=== PATIENT | female | born 1970 | race Caucasian/White ===

== ENCOUNTER 2024-04-02 06:39 | Outpatient (CLI) | payer OTHER, SELFPAY ==
[2024-04-02 08:26] LABS: Alanine Aminotransferase 50 U/L (6-35); Albumin Level 4.5 g/dL (3.5-5.1); Alkaline Phosphatase 68 U/L (38-126); Anion Gap 9 mmol/L (4-12); Aspartate Amino Transferase 31 U/L (14-36); Bilirubin,Total 0.6 mg/dL (0.2-1.3); Blood Urea Nitrogen 16 mg/dL (7-17); Calcium 9.1 mg/dL (8.4-10.2); Carbon Dioxide 27 mmol/L (22-30); Chloride 104 mmol/L (98-107); Cholesterol 142 mg/dL (0-200); Estimated Glomerular Filt Rate > 60; Glucose 99 mg/dL (65-110); HDL Direct 62 mg/dL; Sodium 140 mmol/L (137-145); Triglycerides 154 mg/dL (<150)
[2024-04-02 08:37] LABS: LDL Cholesterol Direct 62 mg/dL
[2024-04-02 08:41] LABS: Hemoglobin A1C 5.6 % (<5.7)
[2024-04-02 08:51] LABS: Free T4 Free Thyroxine 1.69 ng/mL (0.78-2.19)
[2024-04-02 08:55] LABS: Thyroid Stimulating Hormone 0.388 uIU/mL (0.465-4.680)
[2024-04-02 08:59] LABS: Creatinine Urine 92.7 mg/dL
[2024-04-02 09:09] LABS: MALB Creatinine Ratio < 6.5 mg/g (0-30); Microalbumin Urine Random < 6.0 mg/L (0-16.7)
== END 2024-04-02 06:40 | disposition home or self-care (01) ==
PROVIDERS: PCP Family Medicine
DX: E11.9 Type 2 diabetes mellitus without complications (principal); E03.9 Hypothyroidism, unspecified; E78.2 Mixed hyperlipidemia
CPT/HCPCS: 36415; 80053; 80061; 82043; 83036; 84439; 84443

== ENCOUNTER 2025-07-16 14:10 | Outpatient (CLI) | payer OTHER, SELFPAY ==
--- OUTSIDE RECORDS SUMMARY | 2022-04-25 09:39 | XMS_ITS | Continuity of Care Document ---
Author Organization [facility] Address [address] [place] [address] Phone Care Team Providers Care Plastic Duplicator Name Role Phone Aslam, Romila Unavailable Unavailable Allergies, Adverse Reactions, Alerts Substance Reaction Status Criticality NSAIDS (Non-Steroidal Anti-Inflammatory Drug) Active No Information lidocaine Unknown Active No Information Medications Medication Instructions Dosage Effective Dates (start - stop) Status Comments ergocalciferol (vitamin D2) 1,250 mcg (50,000 unit) capsule 1 tab po q week for 3 months - Active prednisone 20 mg tablet take 1 tablet by oral route every day FOR 5 DAYS - Active metformin 500 mg tablet take 1 tablet by oral route 2 times every day with morning and evening meals 500 MG - Active prednisone 10 mg tablet take 1 tablet by oral route every day 10 MG - No Longer Active Procedures Procedure Date OFFICE/OUTPATIENT VISIT, EST OFFICE/OUTPATIENT VISIT, EST Advance Directives Directive Yes / No Effective Date File Name No Information Encounters Encounter Description Practice Location Reason(s) For Visit Diagnoses Date Provider Providers Copied on Encounter OFFICE/OUTPAT IENT VISIT, EST [facility], [address] [place], [address], tel:[phone] *[facility] 2 week f/u (chief complaint)P olyarthopat hy (chief complaint) Polyarthralgia 2 Aslam Romila. [address] [place], [address], . tel:[phone] OFFICE/OUTPAT IENT VISIT, EST [facility], [address] [place], [address], tel:[phone] *[facility] NEW PATIENT (chief complaint)P olyarthopat hy (chief complaint) Polyarthralgia 2 Aslam Romila. [address] [facility], [place], [address], [place]. tel:[phone] Family History Family Member Type Diagnosis Age At Onset No Information Payers Payer name Insurance type Covered constitution party ID Authoriza tion(s) No Information Social History Type Description Quantity Date Captured Comments Alcohol Use Details Unknown Caffeine Use Details Unknown Tobacco Use Status No Information Smoking Status No Information Sex Female Vital Signs Date / Time: Height Weight BMI Pulse Rate Blood Pressure Temperature Respiratory Rate Body Surface Area Head Circumference Head Circ. Percentile Wt./Casa. Percentile BMI percentile Pulse Ox Inhaled Ox 2:41 PM 68.00 in 104.326 kg (230.00 lbs) 34.9 7 kg/m eter (2) 81 /min 128/83 mm[Hg] 97.00 F 94 % Chief Complaint And Reason For Visit From encounter dated '04/25/2022 14:39'. 2 week f/u (chief complaint) Polyarthopathy (chief complaint). Description: 51 y old with h/o overall pain and stiffness for a couple of years . worse since she had COVID earlier this year feels fatiguedhistory and exam was consistent with fibromyalgia last time we did her labs and she is here for follow up on that continues with overall pain and fatigue Reason For Referral Reason For Referral No Information History Of Present Illness Encounter Date Complaint History Of Prese nt Illness Polyarthopathy 51 y old with h/ o overall pain and stiffness for a couple of years . worse since she had COVID earlier this year feels fatiguedhistory and exam was consistent with fibromyalgia last time we did her labs and she is here for follow up on that continues with overall pain and fatigue 2 week f/u NEW PATIENT Polyarthopathy 51 y old with h/ o overall pain and stiffness for a couple of years . worse since she had COVID earlier this year feels fatiguespoor sleepbloating no swelling no rashessometimes swelling of the face around the jaw area? family h/o autoimmune diseaseno h/o strokes,cancers or blood clotsANA of 1:80 on labs a few months ago Functional Status Date Functional Assessmen t No Information Instructions Date Instruction Additional Infor sweetie No Information Assessments Type Assessment Date assessment Polyarthralgia impression patient repeat BEVERLY w as negative autoimune work up is negative as wellTSH was significantly elevated at 109 . i talked to the patient on the phone as well yesterday . she has contacted her PCP and aiting to hear from them at this point she can continue to follow with PCP . if any new complaints advised to make follow up appt Mental Status Date Cognitive Assessment Orientation - [place] ed to time, place, person, situation. Patient Care Teams Name Effective Dates (start - stop) Status Members No Information
--- NOTE | ~2025-07-16 | MM_ITS ---
EXAMINATION: MM screening barbara BI w marito HISTORY: Screening TECHNIQUE: Craniocaudal and mediolateral oblique 3-D tomosynthesis images were obtained and synthetic 2-D images were generated. CAD analysis was submitted and interpreted. COMPARISON: No prior mammogram is available for comparison at this institution. BREAST PARENCHYMAL COMPOSITION: Not dense: There are scattered areas of fibroglandular density. FINDINGS: There is no evidence of suspicious mass, calcification, or architectural distortion to suggest malignancy in either breast. There has been no suspicious interval change. IMPRESSION: 1. No mammographic evidence of malignancy. 2. Recommend routine screening mammography in one year. BI-RADS Category 1: Negative Reviewed, dictated and finalized at location B.
--- OUTSIDE RECORDS SUMMARY | 2025-07-16 14:16 | XMS_ITS | Encounter Summary ---
Author Organization [facility] Address [address] [place] [address] Care Team Providers Care Wood Strip Block Floor Installer Name Role Phone Shaq White MD Primary Care Provider Encounter Details Date Type Department Care Team (Late Contact Info) Description 03/02/2002 Emergency [facility] [place] [address] [facility] [address] [place] [address] Er, Authorized P NO ADDRESS ON FILE FOREIGN BODY HAND (Primary Dx) Social History Tobacco Use Types Packs/Day Years Used Date Smoking Tobacco: Never Assessed Comments Unknown Sex and Gender Information Value Date Recorded Sex Assigned at Not on file Legal Sex 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 Endocrinology [address] [address] [address] [place] [phone] Giana Kendall MD [address] [facility] [address] [place] [phone] documented as of this encounter Visit Diagnoses Diagnosis Hand(s) except finger(s) alone, superficial foreign body (splinter), without major open wound and without mention of infection- Primary documented in this encounter Care Teams Wood Strip Block Floor Installer Relationship Specialty Start Date End Date Shaq White MD [address] [place] [phone] PCP - General Family Practice 02/08/22 documented as of this encounter
--- OUTSIDE RECORDS SUMMARY | 2025-07-16 14:16 | XMS_ITS | Clinical Summary ---
Author Organization [facility] Address [address] [place] [address] Phone Care Team Providers Care Sql Consultant Name Role Phone Shaq White MD Primary Care Provider Allergies Active Allergy Reactions Criticality Noted Date Comments Lidocaine Anaphylaxis 07/03/2025 Nsaids Hives 07/03/2025 Soy Allergy (Obsolete) Hives 07/03/2025 Wound Dressing Adhesive Rash 07/03/2025 Medications No known medications Encounters Date Type Department Care Team Description 07/03/2025 9:16 PM CDT - 07/04/2025 12:38 AM CDT Emergency [facility] Emergency [address] [place] [address] Anders Richards MD Constipation Discharge Disposition: Discharged to home or Selfcare 07/03/2025 Travel from Last 3 Months Social History Tobacco Use Types Packs/Day Years Used Date Smoking Tobacco: Never Assessed Comments Unknown Sex and Gender Information Value Date Recorded Sex Assigned at Not on file 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 Gender Identity Not on file Sexual Orientation Not on file Last Filed Vital Signs Vital Sign Reading Time Taken Comments Blood Pressure 100/49 07/03/2025 11:15 PM CDT Pulse 85 07/03/2025 11:15 PM CDT Temperature 37.4 C (99.4 F) 07/03/2025 9:24 PM CDT Respiratory Rate 16 07/03/2025 11:15 PM CDT Oxygen Saturation 100% 07/03/2025 11:15 PM CDT Inhaled Oxygen Concentration - - Weight 92.1 kg (203 lb) 07/03/2025 9:24 PM CDT Height 172.7 cm (5' 8) 07/03/2025 9:24 PM CDT Body Mass Index 30.87 07/03/2025 9:24 PM CDT Plan of Treatment Health Maintenance Due Date Last Done Comments Hepatitis C Virus (HCV) Screening 1970 Hepatitis B Immunization (1 of 3 - 19+ 3-dose series) 1989 HPV/Cotest 2000 Cologuard 2015 Colonoscopy 2015 Colorectal Cancer Screening 2015 Immunochemical Fecal Occult Blood 2015 Pneumococcal Immunization (50+ years) (1 of 1 - PCV) 2020 Zoster Immunization (1 of 2) 2020 Mammogram 02/15/2023 02/15/2022, 0512/2021, 01/21/2021, Additional history exists Cervical Cancer Screening (CCS) 01/20/2024 Pap Smear 01/20/2024 01/19/2021 Influenza Immunization (#1) 2025 SARS-COV-2 Immunization ( season) 2025 09/16/2023, 07/13/2022, 03/30/2022, Additional history exists Respiratory Syncytial Virus (RSV) Immunization (Adult) (1 - 1-dose 75+ series) 2045 TdaP Immunization Completed 02/07/2019 Human Papillomavirus (HPV) Immunization Aged Out No longer eligible based on patient's age to complete this topic Meningococcal Immunization (ACWY) Aged Out No longer eligible based on patient's age to complete this topic Rotavirus Immunization Aged Out No lo nger eligible based on patient's age to complete this topic Procedures Procedure Name Priority Date/Time Associated Diagnosis Comments CT CHEST ABDOMEN AND PELVIS W CONTRAST Stat with Interpretation 07/03/2025 10:53 PM CDT URINALYSIS REFLEX IF INDICATED BY ABNORMAL RESULTS STAT 07/03/2025 10:06 PM CDT CBC WITH AUTO DIFFERENTIAL STAT 07/03/2025 9:54 PM CDT LIPASE STAT 07/03/2025 9:54 PM CDT COMPLETE BLOOD COUNT (CBC) WITH DIFF STAT 07/03/2025 9:54 PM CDT CMP (COMPREHENSIVE METABOLIC PANEL) STAT 07/03/2025 9:[address] - GENERIC 07/03/2025 12:00 AM CDT from Last 3 Months Results * CT CHEST ABDOMEN AND PELVIS W CONTRAST (07/03/2025 10:53 PM CDT) Anatomical Region Laterality Modality Chest, Abdomen, Pelvis N/A Computed Tomography 07/03/2025 10:5 3 PM CDT Impressions 07/04/2025 5:42 AM CDT IMPRESSION: No acute chest finding. There may be some mild thickening of the descending and sigmoid colon is versus underdistention, a mild nonspecific colitis cannot be excluded. No evidence for bowel obstruction. Narrative 07/04/2025 5:[address] CHEST ABDOMEN AND PELVIS W CONTRAST: 07/03/2025 10:53 PM DICTATING PHYSICIAN: MEAGAN RODRIGUEZ, [facility]. HISTORY: As below. ADDITIONAL TECHNOLOGIST HISTORY: right lower chest pain and right upper abdominal pain TECHNIQUE: Multiple helical axial images were obtained through the chest, abdomen and pelvis with contrast. Multiplanar reformats were performed. Image acquisition performed utilizing automated exposure control (AEC) and iterative reconstruction software in order to lower patient dose. IV CONTRAST TYPE AND VOLUME: Administered contrast documentation is located within the patient's electronic health record. RADIATION DOSE: Radiation dose reduction techniques were employed. CTDIvol: NaN mGy. DLP: 0 mGy- cm. COMPARISON: None. FINDINGS: CHEST: Heart and great vessels: The heart and great vessels are grossly within normal limits. Pericardium: No fluid or thickening. Lymph nodes: No evidence for pathologic axillary, mediastinal, or hilar lymphadenopathy. Esophagus: Small hiatal hernia. Pleura: No pleural effusion or thickening. Lung parenchyma: The lungs are clear bilaterally with no suspicious nodule or airspace consolidation seen. Bibasilar atelectasis. Skeletal structures and soft tissues: Age-appropriate degenerative changes. No suspicious osseous lytic or blastic process. No soft tissue abnormality. ABDOMEN: Liver: Diffusely hypodense parenchyma, likely related to steatosis. No focal nodule or intrahepatic bile duct dilatation. Portal venous system is patent. Gallbladder: Cholecystectomy. Spleen: Within normal limits. No evidence for splenomegaly or focal lesion. Pancreas: No focal lesion or pancreatic ductal dilatation. Adrenal glands: No focal nodule. Kidneys: No focal suspicious lesion or obstructive uropathy evident. Abdominal aorta and IVC: Abdominal aorta is normal in caliber. IVC is grossly normal. Retroperitoneum: Normal Mesentery/Peritoneum: Normal. Stomach and small bowel: Within normal limits. No evidence for obstruction. PELVIS: Free fluid: No free fluid or fluid collection. Reproductive: Normal. Bladder: Normal contour and wall thickness. Lymphadenopathy: No pathologic lymphadenopathy. Colon: Diverticulosis without evidence for diverticulitis. There may be some mild descending and sigmoid colonic wall thickening versus underdistention. Appendix: Normal caliber and wall thickness. Skeletal structures and soft tissues: Age-appropriate degenerative changes. No suspicious osseous lytic or blastic process. No soft tissue abnormality. Procedure Note Meagan Rodriguez MD - 07/04/2025 CT CHEST ABDOMEN AND PELVIS W CONTRAST: 07/03/2025 10:53 PM DICTATING PHYSICIAN: MEAGAN RODRIGUEZ [facility]. HISTORY: As below. ADDITIONAL TECHNOLOGIST HISTORY: right lower chest pain and right upperabdominal pain TECHNIQUE: Multiple helical axial images were obtained through the chest, abdomen andpelvis with contrast. Multiplanar reformats were performed. Imageacquisition performed utilizing automated exposure control (AEC) anditerative reconstruction software in order to lower patient dose. IV CONTRAST TYPE AND VOLUME: Administered contrast documentation islocated within the patient's electronic health record. RADIATION DOSE: Radiation dose reduction techniques were employed.CTDIvol: NaN mGy. DLP: 0 mGy-cm. COMPARISON: None. FINDINGS: CHEST: Heart and great vessels: The heart and great vessels are grossly withinnormal limits. Pericardium: No fluid or thickening. Lymph nodes: No evidence for pathologic axillary, mediastinal, or hilarlymphadenopathy. Esophagus: Small hiatal hernia. Pleura: No pleural effusion or thickening. Lung parenchyma: The lungs are clear bilaterally with no suspicious noduleor airspace consolidation seen. Bibasilar atelectasis. Skeletal structures and soft tissues: Age-appropriate degenerativechanges. No suspicious osseous lytic or blastic process. No soft tissueabnormality. ABDOMEN: Liver: Diffusely hypodense parenchyma, likely related to steatosis. Nofocal nodule or intrahepatic bile duct dilatation. Portal venous system ispatent. Gallbladder: Cholecystectomy. Spleen: Within normal limits. No evidence for splenomegaly or focallesion. Pancreas: No focal lesion or pancreatic ductal dilatation. Adrenal glands: No focal nodule. Kidneys: No focal suspicious lesion or obstructive uropathy evident. Abdominal aorta and IVC: Abdominal aorta is normal in caliber. IVC isgrossly normal. Retroperitoneum: Normal Mesentery/Peritoneum: Normal. Stomach and small bowel: Within normal limits. No evidence forobstruction. PELVIS: Free fluid: No free fluid or fluid collection. Reproductive: Normal. Bladder: Normal contour and wall thickness. Lymphadenopathy: No pathologic lymphadenopathy. Colon: Diverticulosis without evidence for diverticulitis. There may besome mild descending and sigmoid colonic wall thickening versusunderdistention. Appendix: Normal caliber and wall thickness. Skeletal structures and soft tissues: Age-appropriate degenerativechanges. No suspicious osseous lytic or blastic process. No soft tissueabnormality. IMPRESSION: No acute chest finding. There may be some mild thickening of thedescending and sigmoid colon is versus underdistention, a mild nonspecificcolitis cannot be excluded. No evidence for bowel obstruction. Anders Richards MD IM CT ORDERABLES Final R esult * URINALYSIS REFLEX IF INDICATED BY ABNORMAL RESULTS (07/03/2025 10:06 PM CDT) SPECIFIC GRAVITY 1.020 1.003 - 1.030 07/03/2025 10:18 PM CDT [facility] URINE PH 5.0 5.0 - 9.0 07/03/2025 10:18 PM CDT [facility] WBC ESTERASE Negative Negative 07/03/2025 10:18 PM CDT [facility] NITRITE Negative Negative 07/03/2025 10:18 PM CDT [facility] PROTEIN, RANDOM URINE Negative Negative 07/03/2025 10:18 PM CDT [facility] UR[facility] GLUCO[facility], QUAL Negative Negative 07/03/2025 10:18 PM CDT [facility] URINE KETONES Negative Negative 07/03/2025 10:18 PM CDT [facility] UROBILINOGEN Normal Normal mg/dL 07/03/2025 10:18 PM CDT [facility] URINE BLOOD Negative Negative angie/ul 07/03/2025 10:18 PM CDT [facility] URINALYSIS COLOR Straw 07/03/20 10:18 PM CDT [facility] URINALYSIS CLARITY Clear 07/03/2025 10:18 PM CDT [facility] Urine URINE SPECIMEN OBTAINED BY CLEAN CATCH PROCEDURE / Unknown Non-Phlebotomy Collection / Unknown 07/03/2025 10:06 PM CDT 07/03/2025 10:13 PM CDT Anders Richards MD URINE ORDERABLES Final Re sult [facility] [address] [place] [address] * (ABNORMAL) CBC with Auto Differential (07/03/2025 9:54 PM CDT) WBC 12.98(H) 4.00 - 12.00 10(3)/mcL 07/03/2025 10:14 PM CDT [facility] RBC 4.61 3.80 - 5.30 10(6)/mcL 07/03/2025 10:14 PM CDT [facility] HEMOGLOBIN (HGB) 13.3 12.0 - 15.8 g/dL 07/03/2025 10:14 PM CDT [facility] HEMATOCRIT (HCT) 39.4 36.0 - 47.0 % 07/03/2025 10:14 PM CDT [facility] MCV 85.5 82.0 - 96.0 fL 07/03/2025 10:14 PM CDT [facility] MCH 28.9 26.0 - 34.0 pg 07/03/2025 10:14 PM CDT [facility] MCHC 33.8 31.0 - 36.0 g/dL 07/03/2025 10:14 PM CDT [facility] PLATELET COUNT 248 140 - 440 10(3)/[facility] 07/03/2025 10:14 PM CDT [facility] RDW 12.9 11.8 - 15.5 % 07/03/2025 10:14 PM CDT [facility] MPV 10.7 9.7 - 12.4 fL 07/03/2025 10:14 PM CDT [facility] NEUTROPHILS 68.5 47.0 - 73.0 % 07/03/2025 10:14 PM CDT [facility] LYMPHOCYTES 15.9(L) 18.0 - 42.0 % 07/03/2025 10:14 PM CDT [facility] MONOCYTES 14.2(H) 4.0 - 12.0 % 07/03/2025 10:14 PM CDT [facility] EOSINOPHILS 0.5 0.0 - 5.0 % 07/03/2025 10:14 PM CDT [facility] BASOPHILS 0.5 0.0 - 1.0 % 07/03/2025 10:14 PM CDT [facility] IMMATURE GRANULOCYTE 0.4 0.0 - 0.4 % 07/03/2025 10:14 PM CDT [facility] ABSOLUTE NEUTROPHILS 8.89(H) 1.60 - 7.70 10(3)/[facility] 07/03/2025 10:14 PM CDT [facility] ABSOLUTE LYMPHOCYTES 2.07 1.30 - 3.20 10(3)/[facility] 07/03/2025 10:14 PM CDT [facility] ABSOLUTE MONOCYTES 1.84(H) 0.20 - 1.00 10(3)/[facility] 07/03/2025 10:14 PM CDT [facility] ABSOLUTE EOSINOPHIL 0.07 0.00 - 0.40 10(3)/mcL 07/03/2025 10:14 PM CDT [facility] ABSOLUTE BASOPHILS 0.06 0.00 - 0.10 10(3)/mcL 07/03/2025 10:14 PM CDT [facility] ABSOLUTE IMMATURE GRANULOCYTE 0.05(H) 0.00 - 0.03 10 (3) mcL. 07/03/2025 10:14 PM CDT [facility] NRBC PER 100 WBC 0 07/03/20 25 10:14 PM CDT [facility] Blood Venipuncture / Unknown 07/03/2025 9:54 PM CDT 07/03/2025 10:11 PM CDT Anders Rcihards MD HEMATOLOGY ORDERABLES Fin al Result Performing Organization Address City/[facility]/ZIP Co de Phone Number [facility] [address] [place] [address] * Lipase (07/03/2025 9:54 PM CDT) Pathologist [facility] LIPASE 37 8 - 78 U/L 07/03/2025 10:33 PM CDT [facility] Blood Venipuncture / Unknown 07/03/2025 9:54 PM CDT 07/03/2025 10:11 PM CDT Anders Richards MD CHEMISTRY ORDERABLES Kristina l Result [facility] [address] [place] [address] * (ABNORMAL) CMP (Comprehensive Metabolic Panel) (07/03/2025 9:54 PM CDT) SODIUM 140 136 - 145 mmol/L 07/03/2025 10:33 PM CDT [facility] POTASSIUM 3.9 3.5 - 5.1 mmol/L 07/03/2025 10:33 PM CDT [facility] CHLORIDE 105 98 - 107 mmol/L 07/03/2025 10:33 PM CDT [facility] CO2, VENOUS 24 22 - 30 mmol/L 07/03/2025 10:33 PM CDT [facility] ANION GAP 14.9 <18.0 mmol/L 07/03/2025 10:33 PM CDT [facility] GLUCOSE 107(H) 70 - 99 mg/dL 07/03/2025 10:33 PM CDT [facility] BUN 15 10 - 20 mg/dL 07/03/2025 10:33 PM CDT [facility] CREATININE, BLOOD 0.72 0.60 - 1.00 mg/dL 07/03/2025 10:33 PM CDT [facility] BUN/CREATININE RATIO 21(H) 12 - 20 ratio 07/03/2025 10:33 PM CDT [facility] TOTAL PROTEIN 7.2 6.0 - 8.0 g/dL 07/03/2025 10:33 PM CDT [facility] ALBUMIN 4.6 3.5 - 5.0 g/dL 07/03/2025 10:33 PM CDT [facility] A/G RATIO 1.8 1.0 - 2.2 07/03/2025 10:33 PM CDT [facility] CALCIUM 9.2 8.7 - 10.5 mg/dL 07/03/2025 10:33 PM CDT [facility] T BILI 0.6 0.2 - 1.2 mg/dL 07/03/2025 10:33 PM CDT [facility] SGOT (AST) 26 <43 U/L 07/03/2025 10:33 PM CDT [facility] SGPT (ALT) 49 <56 U/L 07/03/2025 10:33 PM CDT [facility] ALKALINE PHOSPHATASE 81 40 - 150 U/L 07/03/2025 10:33 PM CDT [facility] GFR, ESTIMATED >60 >=60 07/03/2025 10:33 PM CDT [facility] Comment: Creatinine Clearance is the preferred criteria for selecting drug dose adjustments in renally impaired patients. The GFR is provided as additional pertinent clinical information. GFR is reported in mL/min/1.73 sq m. Calculation based on the 2020 Chronic Kidney Disease Epidemiology Collaboration (CKD-EPI) equation refit without adjustment for race. GFR, EST. >60 >=60 025 10:33 PM CDT [facility] Comment: Creatinine Clearance is the preferred criteria for selecting drug dose adjustments in renally impaired patients. The GFR is provided as additional pertinent clinical information. GFR is reported in mL/min/1.73 sq m. Calculation based on the 2009 Chronic Kidney Disease Epidemiology Collaboration (CKD-EPI). GFR, EST. NONAFRICAN >60 >=60 07/03/2025 10:33 PM CDT [facility] Comment: Creatinine Clearance is the preferred criteria for selecting drug dose adjustments in renally impaired patients. The GFR is provided as additional pertinent clinical information. GFR is reported in mL/min/1.73 sq m. Calculation based on the 2009 Chronic Kidney Disease Epidemiology Collaboration (CKD-EPI). Blood Venipuncture / Unknown 07/03/2025 9:54 PM CDT 07/03/2025 10:11 PM CDT us Anders Richards MD CHEMISTRY ORDERABLES Kristina l Result Performing Organization Address City/[facility]/ZIP Co de Phone Number [facility] [address] [place] [address] * CT MISCELLANEOUS (07/03/2025 12:00 AM CDT) 07/03/2025 us Provider Scan IMG CT ORDERABLES Final Result SCAN from Last 3 Months Insurance [employer] Care Teams Sql Consultant Relationship Specialty Start Date End Date Shaq White MD [address] [place] [address] PCP - General Family Medicine 07/03/25
--- OUTSIDE RECORDS SUMMARY | 2025-07-16 14:16 | XMS_ITS | Clinical Summary ---
Author Organization [facility] Medical Office [place] Address [address] [address] [place] [address] Care Team Providers Care Academic Director Name Role Phone Shaq White MD Primary Care Provider Allergies Active Allergy Reactions Criticality Noted Date Comments Blue Dye Other (See Comments) Medium 05/15/2025 she said it causes fibromyalgia flares Ibuprofen Hives High 01/06/2015 Latex 07/13/2021 Added based on information entered during case entry, please review and add reactions, type, and severity as needed Lidocaine Swelling Medium 01/06/2015 Nsaids (Non-Steroidal Anti-Inflammatory Drug) Other (See Comments) 04/11/2022 Polysorbate 80 Unknown 09/10/2024 inflammatory reaction, causes fibromyalgia flare up Soy Nausea and Vomiting Low 01/06/2015 Unclassified Drug Hives High 02/08/2022 Allergic to all food dyes Medications lisinopriL (PRINIVIL) 2.5 mg tablet Take 1 Tablet (2.5 mg) by mouth daily. 90 Tablet 3 4 5:34 PM CDT 05/29/20 24 Active Additional Information Patient not taking.Reported on 04/23/2025 moxifloxacin (VIGAMOX) 0.5 % solution Administer 1 drop in the operative eye three times daily. 10 mL 1 04/22/20 25 Active prednisoLONE acetate (PRED FORTE) 1 % suspension Administer 1 drop in the operative eye three times daily. 10 mL 1 04/22/20 25 Active tirzepatide (Mounjaro) 10 mg/0.5 mL Pen InjectorIndication s:Controlled type 2 diabetes mellitus without complication, without long-term current use of insulin Inject 10 mg by subcutaneous injection every 7 days. 6 mL 3 5 5:33 PM CDT 04/23/20 25 Active levothyroxine 50 mcg tabletIndications: Primary hypothyroidism Take 3 Tablets (150 mcg) by mouth daily. 270 Tablet 2 5 2:56 PM CDT 04/23/20 25 Active cloNIDine HCL (CATAPRES) 0.2 mg tablet Take 1 Tablet (0.2 mg) by mouth daily at bedtime. 90 Tablet 5 6:39 PM CDT 06/11/20 25 Active atorvastatin (LIPITOR) 40 mg tablet Take 1 Tablet (40 mg) by mouth daily. 90 Tablet 1 5 6:59 PM CDT 06/25/20 25 Active atorvastatin (Lipitor) 40 mg tabletIndications: Mixed hyperlipidemia Take 1 Tablet (40 mg) by mouth daily. 90 Tablet 3 5 6:22 PM CDT 04/03/20 24 025 Discontin ued(Reord er) Active Problems Problem Noted Date Diagnosed Date Chronic fatigue 12/03/2023 Fibromyalgia 07/19/2023 Hyperlipidemia 12/28/2022 Hepatic steatosis 10/03/2022 Elevated alanine aminotransferase (ALT) level Family history of liver cancer 09/14/2022 Primary hypothyroidism 05/21/2022 Type 2 diabetes mellitus wit hout complication, without long-term current use of insulin 05/10/2022 BEVERLY positive 02/08/2022 Neck swelling 02/08/2022 Elevated fasting blood sugar 02/08/2022 Tubular adenoma of colon 02/08/2022 Overview (02/08/2022): colonoscopy 07/19/[address] Guan - tubular adenoma noted, recommended repeat in 7 years Parotid gland enlargement 02/19/2021 Assessment & Plan (02/19/2021 12:36 PM CDT): Acute. Will check CBC and start on amoxil. Pt will have to check with pharmacist to make sure this abx does not have soy as she is allergic. She does not know which antibiotics she can take. Massage area, warm compresses, strong sour flavor such as lemon drop to help with the swelling. FU is not getting better. Patient verbalized understanding of information given, questions were answered to patients satisfaction and patient agreed to plan of care. Palpitations 01/08/2021 Assessment & Plan (01/08/2021 3:01 PM CDT): Stable. 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 Pt describes PVCs and she is counseled on treatment for this, notes that her sister has them all the time. Avoid or limit caffeine, labs are ordered. Arthralgia 10/14/2015 Assessment & Plan (01/08/2021 3:02 PM CDT): Suboptimal control. Discussed inflammation and diet with exercise to improve mobility and decrease pain. Labs are ordered. FU one month Assessment & Plan (10/14/2015 11:29 AM HITCHER): She'll continue with prednisone 5 mg once daily at this time. She will have laboratory studies performed. Recommend rheumatology consultation for further evaluation and recommendation. Allergy to perfume 01/07/2015 Dyspnea on exertion Resolved Problems Problem Noted Date Diagnosed Date Resolved Date Well woman exam with routine gynecological exam 01/20/2021 02/08/2022 Assessment & Plan (01/20/2021 7:51 AM CDT): Stable. Pap today, counseled patient on breast self exams, mammogram is scheduled. Discussed the newest guidelines regarding cervical cancer screening. The current recommendations put forth by the by the [place] Preventative Task force for women (USPSTF), the [place] Cancer Society, [place] Society for colposcopy and cervical Pathology/[place] Society for Clinical Pathology (ACS/ASCCP/ASCP) recommend screening with cytology every 3 years for women ages 21-29 years of age. 30-65 years: Recommends screening with cytology every 3 years or for women who want to lengthen the screening interval, screening with a a combination of cytology and HPV testing every 5 years These new guidelines from the USPSTF and ACS/ASCCP/ASCP are for women of average risk. More frequent testing may be appropriate for women with conditions that place them at an increased risk of cervical cancer. Cervical cancer is typically slow growing and most cancers are found in women who have never been screened or who have not been screened in the past 5 years. pap smear return annually or prn counseled on breast self exam, use and side effects of OCP's and adequate intake of calcium and vitamin D Counseled patient on the following: continue current medications, continue current healthy lifestyle patterns and return for routine annual checkups Encounter for routine adult health examination without abnormal findings 01/08/2021 Assessment & Plan (01/08/2021 3:02 PM CDT): Stable. Establish care today. Discussed health screenings that are due and mammogram/colonoscopy is ordered. Labs are ordered. FU one month. Current chronic use of systemic steroids 09/04/2019 02/08/2022 Irritable bowel syndrome without diarrhea 10/14/2015 09/02/2019 Assessment & Plan (10/14/2015 11:29 AM HITCHER): She should continue to be vigilant of her diet. She should notify the office of any worsening development. She will have laboratory studies performed. Tobacco use 10/14/2015 09/04/2019 Assessment & Plan (10/14/2015 11:29 AM HITCHER): TOBACCO COUNSELING She was counseled to discontinue tobacco use. Recommend she contact 7-903-HSHI-NOW or www.smokefree.gov for assistance. [facility] offers an evidence-based smoking cessation program called [place] from Smoking. It is a 7 week program that includes counseling and nicotine replacement therapy (patch, lozenge, or gum). The class does cost $40 per person or $60 per couple. Please contact the [facility] (Macie Calderon at [email or web address] or [phone]) for questions, scheduling and further information. If you reside outside of [facility] please check with your [facility] Department. Atypical nevus of neck 10/14/201509/02 Overview (10/14/2015): Right side. Assessment & Plan (10/14/2015 11:30 AM HITCHER): Recommend observation. She should notify the office if there is any change in size, color or other concern. Gastrointestinal food sensitivity 01/07/2015 09/02/2019 Encounters Date Type Department Care Team Description 06/17/2025 External Device Data ST[facility] ABSTRACTION Provider, Abstract 06/04/2025 External Device Data [facility] ABSTRACTION Provider, Abstract 05/27/2025 External Device Data [facility] ABSTRACTION Provider, Abstract 05/08/2025 Results Follow-Up [facility] [address] [place] [address] Giana Kendall MD TSH REFLEXIVE 04/30/2025 External Device Data [facility] ABSTRACTION Provider, Abstract 04/30/2025 External Device Data [facility] ABSTRACTION Provider, Abstract 04/23/2025 11:20 AM CDT Office Visit [facility] [address] [place] [address] Giana Kendall MD Primary hypothyroidism (Primary Dx); Multinodular non-toxic goiter; Controlled type 2 diabetes mellitus without complication, without long-term current use of insulin (CMS/[facility]); Overweight; Mixed hyperlipidemia; Hypothyroidism, unspecified type; Type 2 diabetes mellitus not at goal (CMS/HCC) 04/15/2025 External Device Data STL ABSTRACTION Provider, Abstract from Last 3 Months Immunizations Immunization Administration Dates Next Due (ADACEL/BOOSTRIX)(10 YR UP) TDAP VACCINE, 0.5ML, IM 02/07/2019 (COMRINATY 2024-)(12YR UP) COVID-19 VACCINE, MRNA (PF)30 MCG/0.3 ML, IM SYRINGE 09/16/2023 (PFIZER TEVIN)(12 YR UP PRIMA RY SERIES) COVID-19 VACCINE - EMERGENCY USE AUTHORIZATION, MRNA, TEVIN(PF) 30 MCG/0.3 ML IM SUSP 03/30/2022 (PFIZER)(12 YR UP) COVID-19 VACCINE - EMERGENCY USE AUTHORIZATION, MRNA, [id number](PF) 30 MCG/0.3 ML IM SUSP 10/13/2021,03/10/2021,01/29/2021 (Pfizer Bivalent)(12 Yr Up) COVID-19 Vaccine - Emergency Use Authorization, MRNA, Lnp-S(Pf) 30 Mcg/0.3 Ml Susp 07/13/2022 Family History Medical History Relation Name Comments Heart Attack Brother 3 Diabetes Brother 4 Justo Burroughs Heart Disease Brother 5 Dexter Burroughs - heart attack ~2004 Cancer Father Alison Burroughs , reyes creatic cancer Diabetes Father Alison Burroughs Heart Disease Father Alison Burroughs Hypertension Father Alison Burroughs Cancer Mother Mira Burroughs , sima er cancer Thyroid Disease Mother Mira Burroughs Cancer Sister 2 Karma Solorzano , TP LL Diabetes Sister 2 Karma Solorzano Relation Name Status Comments Brother 1 Alive Brother 2 Brother 3 Brother 4 Justo Burroughs Brother 5 Dexter Burroughs Father Alison Burroughs Mother Mira Burroughs Sister 1 Sister 2 Karma Solorzano Social History Tobacco Use Types Packs/Day Years Used Date Smoking Tobacco: Former Cigarettes 0.5 20 Smokeless Tobacco: Never Tobacco Cessation:Counseling Given: No Comments:quit years ago Alcohol Use Standard Drinks/Week Comments No 0 (1 standard drink = 0.6 oz pur e alcohol) Comments No Sex and Gender Information Value Date Recorded Sex Assigned at Not on file Legal Sex Female 3:27 AM HITCHER Gender Identity Not on file Sexual Orientation Not on file Occupation Industry Job Start Date Job End Date Not on file Not on file Not on file Not on file Last Filed Vital Signs Vital Sign Reading Time Taken Comments Blood Pressure 110/78 04/23/2025 11:05 AM CDT Pulse 69 04/23/2025 11:05 AM CDT Temperature 36.7 C (98 F) 04/22/2022 12:09 PM CDT Respiratory Rate 14 07/19/2023 10:4 1 AM CDT Oxygen Saturation 97% 04/23/2025 11: 05 AM CDT Inhaled Oxygen Concentration - - Weight 93.8 kg (206 lb 12.8 oz) 025 11:05 AM CDT Height 172.7 cm (5' 8) 04/23/2025 11:0 5 AM CDT Body Mass Index 31.44 04/23/2025 11:05 AM CDT Plan of Treatment Upcoming Encounters Date Type Department Care Team (Late st Contact Info) Description 10/29/2025 9:00 AM HITCHER Video Visit [facility] [address] [address] [address] [place] [phone] Giana Kendall MD [address] [place] [phone] Health Maintenance Due Date Last Done Comments HEPATITIS B VACCINES (1 of 3 - 19+ 3-dose series) 1989 FIT-DNA Q 3 years 2015 FIT/FOBT Q 1 year 2015 Flex Sig/CT Colonography Q 5 years 2015 ZOSTER VACCINE (1 of 2) 2020 BREAST CANCER SCREENING 02/15/2023 02/16/20, 01/21/2021, 05/04/2016, Additional history exists DIABETES ANNUAL FOOT EXAM 09/14/2023 09/14/2022 LDL CHOLESTEROL ANNUAL 12/29/2023 , 08/31/2022, 08/31/2022, Additional history exists PAP SMEAR 01/20/2024 01/19/2021, 12/15 (Previously completed) DIABETES HBA1C Q 6 MONTHS 03/21/20242022, 05/08/2023, 12/28/2022, Additional history exists DIABETES MICROALBUMIN ANNUAL SCREEN 05/08/2024 05/08/2023, 05/31/2022 Preventative Visit- Commercial 10/16/2024 0 04/05/2023, 05/10/2022, 01/08/2021, Additional history exists INFLUENZA VACCINE (#1) 2025 COVID-19 Vaccine (2024-2 6 season) 2025 09/16/2023, 07/13/2022, 03/30/2022, Additional history exists CERVICAL CANCER SCREENING 01/19/2026 HPV/Cotest (21-29) 01/19/2026 01/19/2021 HPV/Cotest (30-65) 01/19/2026 01/19/2021 DIABETES ANNUAL RETINAL EXAM 02/05/2026, 12/27/2023, 05/17/2023, Additional history exists COLORECTAL SCREENING 07/19/2028 07/19/2021, 07/19/20 21 Colorectal Cancer Screening 07/19/2028 DTAP/TDAP/TD VACCINES (2 - T d or Tdap) 02/07/2029 02/07/2019 Procedures Procedure Name Priority Date/Time Associated Diagnosis Comments TSH REFLEXIVE Routine 04/23/2025 12:07 PM CDT Primary hypothyroidism HM DIABETES EYE EXAM Routine 02/05/2025 11:19 AM CDT POC HEMOGLOBIN A1C Routine 09/20/2023 1: 50 PM HITCHER Controlled type 2 diabetes mellitus without complication, without long-term current use of insulin ([facility]/HCC) MICROALBUMIN/CREATI NINE RATIO, RANDOM UR Routine 05/08/2023 12:43 PM CDT Type 2 diabetes mellitus without complication, without long-term current use of insulin ([facility]/HCC) LIPID PANEL Routine 12/28/2022 9:14 AM CDT Hyperlipidemia, unspecified hyperlipidemia type MAMMO 3D LUIS ENRIQUE SCREEN BILAT W OR WO CAD Routine 02/15/2022 9:33 AM CDT Encounter for screening mammogram for malignant neoplasm of breast COLONOSCOPY REPORT 07/19/2021 12 :45 PM CDT CERV/VAG CYTO AGE BASED SCREEN PAP W CT/NG, TRICH Routine 01/19/2021 4:40 PM CDT Well woman exam with routine gynecological exam from Last 3 Months or Most Recently Relevant to Health Maintenance Results * TSH REFLEXIVE (04/23/2025 12:07 PM CDT) TSH 3.04 mIU/L [facility] Comment: Reference Range > or = 20 Years 0.40-4.50 Ranges First trimester 0.26-2.66 Second trimester 0.55-2.73 Third trimester 0.43-2.91 Test Performed at: [place] [address] [place] [address] Raven Holm Blood 04/23/2025 12:0 7 PM CDT 04/23/2025 12:07 PM CDT Giana Kendall MD CHEMISTRY ORDERABLES Final Result Performing Organization Address City/[facility]/ZIP Code Phone Number [facility] [phone] [facility] [address] [place] [address] * DIABETES EYE EXAM (02/05/2025 11:19 AM CDT) Abstract Provider HEALTH MAINTENANCE Edited Resu lt - Final Performing Organization Address City/[facility]/ZIP Co de Phone Number [facility] JOSE D CLIA# [id number] [address] [address] [address] [place] [address] * (ABNORMAL) POC HEMOGLOBIN A1C (09/20/2023 1:50 PM HITCHER) HGB A1C POC 6.1(A) 4.0 - 6.0 % [facility] Blood, whole 09/20/2023 1:50 PM HITCHER Giana Kendall MD POINT OF CARE TESTING Final Result Performing Organization Address [facility]/ZIP Co de Phone Number [facility] NENZEL CLIA# [id number] [address] [place] [address] [address] [place] [address] * MICROALBUMIN/CREATININE RATIO, RANDOM UR (05/08/2023 12:43 PM CDT) Creatinine, Urine 80 20 - 275 mg/dL [facility] MICROALBUMIN, URINE 0.2 See Note: mg/dL [facility] Comment: Reference Range: Reference Range Not established MICROALBUMIN/CREAT RATIO, UR 3 <30 mcg/mg creat [facility] Comment: The ADA defines abnormalities in albumin excretion as follows: Albuminuria Category Result (mcg/mg creatinine) Normal to Mildly increased <30 Moderately increased 30-299 Severely increased > OR = 300 The ADA recommends that at least two of three specimens collected within a 3-6 month period be abnormal before considering a patient to be within a diagnostic category. Test Performed [facility] [address] [place] [address] Raven Holm MD Urine URINE SPECIMEN OBTAINED BY CLEAN CATCH PROCEDURE / Unknown 05/08/2023 12:43 PM CDT 05/08/2023 12:45 PM CDT Shaq White MD URINE ORDERABLES Final Result [facility] [phone] [facility] [address] [place] [address] * LIPID PANEL (12/28/2022 9:14 AM CDT) CHOLESTEROL 129 <200 mg/dL [facility] HDL 55 > OR = 50 mg/dL [facility] TRIGLYCERIDE 105 <150 mg/dL [facility] LDL CALCULATED 55 mg/dL (calc) [facility] Comment: Reference range: <100 Desirable range <100 mg/dL for primary prevention; <70 mg/dL for patients with CHD or diabetic patients with > or = 2 CHD risk factors. LDL-C is now calculated using the Molina-Brittani calculation, which is a validated novel method providing better accuracy than the Friedewald equation in the estimation of LDL-C. Molina HERRMANN et al. IBAN. 2013;310(19): 2386-5901 (http://education.DriverTech.Dayima/faq/DHZ047) CHOL/HDL RATIO 2.3 <5.0 (calc) Richard 24SymbolsColin Muller TOTAL NON-HDL CHOL(LDL+VLDL) 74 <130 mg/dL (calc) [facility] Muller Comment: For patients with diabetes plus 1 major ASCVD risk factor, treating to a non-HDL-C goal of <100 mg/dL (LDL-C of <70 mg/dL) is considered a therapeutic option. Test Performed at: [facility] [address] [place] [address] Raven Holm Blood 12/28/2022 9:14 AM CDT 12/28/2022 9:21 AM CDT Shaq White MD CHEMISTRY ORDERABLES F inal Result [facility] [phone] [facility] [address] [place] [address] * MAMMO SCRN BILAT 3D LUIS ENRIQUE W OR WO CAD (02/15/2022 9:33 AM CDT) Anatomical Region Laterality Modality Breast Bilateral Mammography 02/15/2022 9:34 AM CDT Impressions 02/16/2022 9:58 PM CDT IMPRESSION: No evidence of breast malignancy. RECOMMENDATION: Screening mammogram in one year. OVERALL FINAL ASSESSMENT: BI-RADS CATEGORY 1 - Negative Results will be sent to patient via lay letter by mail. DICTATION LOCATION: [facility] Narrative 02/16/2022 9:58 PM CDT BILATERAL DIGITAL SCREENING MAMMOGRAM WITH TOMOSYNTHESIS WITH COMPUTER AIDED DETECTION EXAM DATE: 02/15/2022 9:33 AM INDICATION: Breast cancer screening. 51-year-old asymptomatic female. History provided at time of exam: No personal or family history of breast cancer. COMPARISON: 01/21/2021, 05/04/2016, 01/12/2015. BREAST COMPOSITION: There are scattered areas of fibroglandular density. FINDINGS: No suspicious microcalcifications, architectural distortion, or suspicious masses. No suspicious mammographic or tomographic finding to suggest malignancy or significant interval change. CAD was used. Procedure Note Clarita Gupta MD - 02/16/2022 BILATERAL DIGITAL SCREENING MAMMOGRAM WITH TOMOSYNTHESIS WITH COMPUTER AIDED DETECTION EXAM DATE: 02/15/2022 9:33 AM INDICATION: Breast cancer screening. 51-year-old asymptomatic female. History provided at time of exam: No personal or family history of breast cancer. COMPARISON: 01/21/2021, 05/04/2016, 01/12/2015. BREAST COMPOSITION: There are scattered areas of fibroglandular density. FINDINGS: No suspicious microcalcifications, architectural distortion, or suspicious masses. No suspicious mammographic or tomographic finding to suggest malignancy or significant interval change. CAD was used. IMPRESSION: No evidence of breast malignancy. RECOMMENDATION: Screening mammogram in one year. OVERALL FINAL ASSESSMENT: BI-RADS CATEGORY 1 - Negative Results will be sent to patient via lay letter by mail. DICTATION LOCATION: [facility] Shaq White MD MAMMO ORDERABLES Final Result * COLONOSCOPY REPORT (07/19/2021 12:45 PM CDT) Narrative Procedure Note Joel Guan MD - 07/19/2021 12:44 PM CDT [facility] Endoscopy Patient Name: Parvin Espinosa Procedure Date: 07/19/2021 Date of : 1970 Attending MD: Joel Guan MD Procedure: Colonoscopy Indications: Screening for colorectal malignant neoplasm Patient Profile: Refer to note in patient chart for documentation of history and physical. Providers: Joel Guan MD Referring MD: Medicines: Monitored Anesthesia Care Complications: No immediate complications. Procedure: Pre-Anesthesia Assessment: - Prior to the procedure, a History and Physical was performed, and patient medications, allergies and sensitivities were reviewed. The patient's tolerance of previous anesthesia was reviewed. - The risks and benefits of the procedure and the sedation options and risks were discussed with the patient. All questions were answered and informed consent was obtained. - ASA and MP per anesthesia records. See the other procedure note for documentation of the pre-procedure assessment Informed consent was obtained for the procedure, including moderate sedation after risks were discussed. Based on the pre-procedure assessment, including review of the patient's medical history, medications, allergies, and review of systems, the patient was deemed to be an appropriate candidate for sedation. A timeout was performed. Continuous ECG monitoring, pulse oximetry, blood pressure monitoring, and direct observation were performed. The (Colon 4277) was introduced through the anus and advanced to the cecum, identified by appendiceal orifice and ileocecal valve. The colonoscopy was performed without difficulty. The patient tolerated the procedure well. The quality of the bowel preparation was evaluated using the BBPS ([place] Bowel Preparation Scale) with scores of: Right Colon = 3, Transverse Colon = 3 and Left Colon = 3 (entire mucosa seen well with no residual staining, small fragments of stool or opaque liquid). The total BBPS score equals 9. Estimated Blood Loss: Estimated blood loss: none. Findings: The perianal and digital rectal examinations were normal. A 4 mm polyp was found in the ascending colon. The polyp was sessile. The polyp was removed with a cold snare. Resection and retrieval were complete. A few small-mouthed diverticula were found in the sigmoid colon. There was no evidence of diverticular bleeding. The retroflexed view of the distal rectum and anal verge was normal and showed no anal or rectal abnormalities. Impression: - One 4 mm polyp in the ascending colon, removed with a cold snare. Resected and retrieved. - Diverticulosis in the sigmoid colon. There was no evidence of diverticular bleeding. Recommendation: - Await pathology results. - Repeat colonoscopy in 7-10 years for surveillance based on pathology results. - High fiber diet. - Return to primary care physician as previously scheduled. - The findings and recommendations were discussed with the patient. - Discharge patient to home (with escort). Attending Participation: I personally performed the entire procedure. Joel Guan MD 07/19/2021 12:44:04 PM This report has been signed electronically. Number of Addenda: 0 [address] [address], [place] [address] Joel Guan MD GI PROCEDURE ORDERABLES Final Result * CERV/VAG CYTO AGE BASED SCREEN PAP W CT/NG, TRICH (01/19/2021 4:40 PM CDT) COMMENT (PAP): SEE COMMENT 10:56 AM CDT [facility] Comment: This order for age-based cervical cancer and STI screening follows ACOG guidelines(PB 168, 140, CSZ110). See individual assays for performing site location. CLINICAL INFORMATION Information not provided 01/23/2021 10:56 AM CDT [facility] LAST MENSTRUAL PERIOD 11/29/20 01/23/2021 10:56 AM CDT [facility] PREV PAP: Information not provided 01/23/2021 10:56 AM CDT [facility] PREV BX: Information not provided 01/23/2021 10:56 AM CDT [facility] SOURCE Endocervix 01/23/2021 10:56 AM CDT [facility] ADEQUACY: SEE COMMENT 01/23/2021 10:56 AM CDT [facility] Comment: Satisfactory for evaluation. Endocervical/transformation zone component absent. PAP INTERP Negative for intraepithelial lesion or malignancy. 01/23/2021 10:56 AM CDT [facility] COMMENT This Pap test has been evaluated with computer assisted technology. 01/23/2021 10:56 AM CDT [facility] ONLINE TUTOR: SEE COMMENT 2020 10:56 AM CDT [facility] Comment: CRISTIAN BARRIOS(ASCP) CT Screening location: [address] [place], [place] [address] [place] [address] EXPLANATORY NOTE SEE COMMENT 10:56 AM CDT [facility] Comment: EXPLANATORY NOTE: The Pap is a screening test for cervical cancer. It is not a diagnostic test and is subject to false negative and false positive results. It is most reliable when a satisfactory sample, regularly obtained, is submitted with relevant clinical findings and history, and when the Pap result is evaluated along with historic and current clinical information. HPV E6/E7 Not Detected Not Detected 01/23/2021 10:56 AM CDT [facility] Comment: Methodology: Account Executive-Mediated Amplification This assay detects E6/E7 viral messenger RNA (mRNA) from 14 high-risk HPV types (16,18,31,33,35,39,45,51,52,56,58,59,66,68). The analytical performance characteristics of this assay have been determined by [facility]. The modifications have not been cleared or approved by the FDA. This assay has been validated pursuant to the CLIA regulations and is used for clinical purposes. For additional information, please refer to http://education.[employer]ash[employer].Dayima/faq/LUE161h8 (This link if provided for information/ educational purposes only.) Genital SWAB OF ENDOCERVIX / Unknown Collection / Unknown 01/19/2021 4:40 PM CDT 01/19/2021 8:14 PM CDT Narrative [facility] - 01/23/2021 10:56 AM CDT Performing Organization Information: Site ID: [place] [facility] Address: [address] [address] Director: Joni Khan D.O., MPH Site ID: [place] [facility] Address: [address] [place] [address] Director: Raven Holm Olive Beauchamp NOZZLE OPERATOR PATHOLOGY/CYTOLOGY ORDERABLES Final Result [facility] [phone] from Last 3 Months or Most Recently Relevant to Health Maintenance Insurance [facility] OPEN ACCESS O [facility] RX [facility] [employer] RX [employer] Commercial [[id number] RX [facility] [employer] RX [employer] (INTERNAL) [facility] Internal Plans Advance Directives For more information, please contact: [phone] * Full Code (Latest Code Status on File) Date Activated Date Inactivated Comments 07/19/2021 10:58 AM 07/19/2021 4:16 PM Care Teams Academic Director Relationship Specialty Start Date End Date Shaq White MD [address] [place] [address] PCP - General Family Practice 02/08/22
== END 2025-07-16 14:11 | disposition home or self-care (01) ==
LOC: CHSIMG 14:11
PROVIDERS: PCP Family Medicine; Visit Provider Family Medicine
DX: Z12.31 Encounter for screening mammogram for malignant neoplasm of breast (principal)
CPT/HCPCS: 77063; 77067

== ENCOUNTER 2025-07-23 12:34 | Outpatient (CLI) | payer OTHER, SELFPAY ==
--- NOTE | ~2025-07-23 | US_ITS ---
EXAMINATION: US thyroid DATE: 07/23/2025 13:26 INDICATION: Nontoxic single thyroid nodule. TECHNIQUE: Multiple ultrasound images of the thyroid were obtained. COMPARISON: None. FINDINGS: The right thyroid lobe measures 3.8 x 1.1 x 1.2 cm. The left thyroid lobe measures 3.6 x 1.0 x 1.0 cm. The thyroid is diffusely heterogeneous and hypoechoic. No discrete nodule. Color Doppler imaging was not performed. IMPRESSION: 1. Heterogeneous thyroid, likely chronic lymphocytic (Carlota) thyroiditis. Reviewed, dictated and finalized at location E.
== END 2025-07-23 12:35 | disposition home or self-care (01) ==
LOC: CHSIMG 12:36
PROVIDERS: PCP Family Medicine; Visit Provider Family Medicine
DX: E04.1 Nontoxic single thyroid nodule (principal); E07.89 Other specified disorders of thyroid
CPT/HCPCS: 76536

== ENCOUNTER 2025-08-04 15:56 | Outpatient (CLI) | payer OTHER, SELFPAY ==
--- NOTE | ~2025-08-04 | XR_ITS ---
EXAMINATION: XR chest 2V, 08/04/2025 16:05 CDT HISTORY: Chest pain, sob x 5 days, hard to take deep breath, no surg COMPARISON: No comparisons available. Technique: 2 views obtained. Findings: Small right basilar infiltrate and effusion. No pneumothorax. Heart is normal size. Mediastinal and hilar contours are within normal limits. Bony thorax no acute abnormality. Impression: Small right lower lobe pneumonia Reviewed, dictated and finalized at location P. Impression: Small right lower lobe pneumonia
== END 2025-08-04 15:57 | disposition home or self-care (01) ==
PROVIDERS: PCP Student in an Organized Health Care Education/Training Program; Visit Provider Student in an Organized Health Care Education/Training Program
DX: R07.9 Chest pain, unspecified (principal); J18.9 Pneumonia, unspecified organism
CPT/HCPCS: 71046